=== PATIENT | female | born 1985 | race Two or more races ===

== ENCOUNTER 2017-11-17 08:11 | Outpatient (CLI) | payer BC, OTHER ==
[2017-11-17 09:10] LABS: HGB - HEMOGLOBIN 13.3 g/dL (12.0-16.0); MEAN CORPUSCULAR HEMOGLOBIN 29.6 pg (27.0-31.0); MEAN CORPUSCULAR HGB CONC 33.1 g/dL (32.0-36.0); MEAN CORPUSCULAR VOLUME 89.5 fL (81.0-99.0); MEAN PLATELET VOLUME 8.6 fL (7.9-10.8); RED BLOOD COUNT 4.5 10^6/uL (4.20-5.40); RED CELL DISTRIBUTION WIDTH 13.4 % (12.0-15.0); WHITE BLOOD COUNT 6.4 x10^3/uL (4.8-10.8)
[2017-11-17 09:24] LABS: CHOL/HDL RATIO 3.4 (<4.4); CHOLESTEROL 206 mg/dL; GLUCOSE,FASTING 91 mg/dL (70-100); HDL CHOLESTEROL 60 mg/dL; LDL CHOLESTEROL,CALCULATED 133 mg/dL; LDL/HDL RATIO 2.2 (<4.4); VLDL CHOLESTEROL 13 mg/dL
[2017-11-17 09:32] LABS: HB2 TOTAL 14.7 g/dL; HEMOGLOBIN A1C 0.48 g/dL; HEMOGLOBIN A1C % 5.1 % (4.6-6.2)
[2017-11-17 09:53] LABS: THYROID STIMULATING HORMONE 1.27 uIU/mL (0.34-5.60)
[2017-11-17 10:20] LABS: FOLLICLE STIMULATING HORMONE 6.7 mIU/mL
[2017-11-17 10:21] LABS: LUTEINIZING HORMONE 8.44 mIU/mL
[2017-11-18 11:57] LABS: ESTRADIOL 259 pg/mL
[2017-11-19 20:46] LABS: DHEA SULFATE 112 mcg/dL (18-391)
== END 2017-11-17 08:12 | disposition home or self-care (01) ==
LOC: LAB 08:11
PROVIDERS: ATTEND Registered Nurse
DX: Z01.419 Encounter for gynecological examination (general) (routine) without abnormal findings (principal); L70.0 Acne vulgaris
CPT/HCPCS: 36415; 80061; 81599; 82627; 82670; 82947; 83001; 83002; 83036; 83721; 84402; 84403; 84443; 85027

== ENCOUNTER 2017-12-01 15:09 | Outpatient (CLI) | payer BC, OTHER | END 2017-12-01 15:10 | disposition home or self-care (01) | LOC: LAB 15:09 | PROVIDERS: ATTEND Registered Nurse | DX: E28.2 Polycystic ovarian syndrome (principal) | CPT/HCPCS: 36415; 84144 ==

== ENCOUNTER 2017-12-29 17:17 | Outpatient (CLI) | payer BC, OTHER ==
--- NOTE | 2017-12-30 09:00 | Ultrasound Report ---
Procedure Date: 12/29/2017 Accession Number: [id number] / [id number] Procedure: US - OB First Trimester CPT Code: FULL RESULT: EXAM: FIRST TRIMESTER OBSTETRIC ULTRASOUND (Less than 11 weeks) EXAM DATE: 12/29/2017 06:36 PM. CLINICAL HISTORY: Positive test. Dating. LMP: 11/08/2017. COMPARISONS: None. TECHNIQUE: Transabdominal and transvaginal ultrasound examination with static image documentation. CLINICAL DATES: EGA 7 weeks, 2 days with DAVIN 08/15/2018 based on LMP. ASSESSMENT: Gestational Sac: Single intrauterine. Mean gestational sac diameter: 19.1 mm = 6 weeks, 2 days. Embryo: CRL (crown-rump length) 13.1 mm = 7 weeks, 4 days. Cardiac activity: 166 beats per minute. Yolk sac: 2.3 mm. Amniotic fluid: Not accurately assessed at this gestational age. Early placenta: Not visible at this gestational age. Other: No perigestational fluid collection demonstrated. MATERNAL STRUCTURES: Uterus: Anteverted. Unremarkable. Cervix: Closed. Right Ovary/Adnexa: Thick-walled cystic lesion is present within the right ovary measuring up proximally 1.8 x 2.1 x 2.2 cm with peripheral vascularity typically seen with a corpus luteal cyst. The ovary measures 3.7 x 2.0 x 2.2 cm, volume 8.5 cc. Left Ovary/Adnexa: Within the left ovary is a unilocular cyst measuring 2.1 x 1.8 x 1.5 cm. The ovary measures 3.4 x 2.1 x 3.0 cm, volume 11.2 cc. Free Fluid: Small volume of right adnexal pelvic free fluid.. Other: None. IMPRESSION: 1. Single viable intrauterine at EGA 7 weeks, 4 days with DAVIN 08/13/2018 based on crown-rump length, which is concordant with estimated gestational age of 7 weeks, 2 days based on stated dating. 2. Assigned dating is DAVIN 08/15/2018 based on LMP. HARPREET
== END 2017-12-29 17:18 | disposition home or self-care (01) ==
LOC: DI 17:17
PROVIDERS: ATTEND Registered Nurse
DX: Z32.01 Encounter for pregnancy test, result positive (principal)
CPT/HCPCS: 76801; 76817

== ENCOUNTER 2018-01-05 15:21 | Outpatient (CLI) | payer BC, OTHER ==
[2018-01-05 18:43] LABS: MUDS CUTOFF CONCENTRATIONS CUTOFF CONC BELOW:
[2018-01-05 19:02] LABS: AMPHETAMINE SCREEN,URINE NEGATIVE (NEGATIVE); BENZODIAZEPINES SCREEN, URINE NEGATIVE (NEGATIVE); COCAINE SCREEN URINE NEGATIVE (NEGATIVE); METHADONE SCREEN, URINE NEGATIVE (NEGATIVE); METHAMPHETAMINES SCREEN, URINE NEGATIVE (NEGATIVE); OPIATE SCREEN, URINE NEGATIVE (NEGATIVE); OXYCODONE SCREEN, URINE NEGATIVE (NEGATIVE); PROPOXYPHENE SCREEN, URINE NEGATIVE (NEGATIVE); TRICYCLIC ANTIDEPRESSANT,URINE NEGATIVE (NEGATIVE)
== END 2018-01-05 15:22 | disposition home or self-care (01) ==
LOC: LAB.R 15:21
PROVIDERS: ATTEND Registered Nurse
DX: Z36.9 Encounter for antenatal screening, unspecified (principal)
CPT/HCPCS: 80306; 87491; 87591

== ENCOUNTER 2018-01-05 16:29 | Outpatient (CLI) | payer BC, OTHER ==
[2018-01-05 17:01] LABS: BASOPHILS # (AUTO) 0.1 10^3/uL (0.0-0.1); BASOPHILS % (AUTO) 1.1 %; EOSINOPHILS # (AUTO) 0.3 10^3/uL (0.0-0.7); EOSINOPHILS % (AUTO) 2.7 %; HGB - HEMOGLOBIN 12.3 g/dL (12.0-16.0); LYMPHOCYTES # (AUTO) 3.1 10^3/uL (1.5-3.5); MEAN CORPUSCULAR HEMOGLOBIN 29.8 pg (27.0-31.0); MEAN CORPUSCULAR VOLUME 87.6 fL (81.0-99.0); MEAN PLATELET VOLUME 8.5 fL (7.9-10.8); MONOCYTES # (AUTO) 0.6 10^3/uL (0.0-1.0); MONOCYTES % (AUTO) 6.5 %; NEUTROPHILS # (AUTO) 5.6 10^3/uL (1.5-6.6); NEUTROPHILS % (AUTO) 57.7 %; PLT - PLATELET COUNT 197 10^3/uL (130-450); RED BLOOD COUNT 4.13 10^6/uL (4.20-5.40); RED CELL DISTRIBUTION WIDTH 13.5 % (12.0-15.0); WHITE BLOOD COUNT 9.7 x10^3/uL (4.8-10.8)
[2018-01-05 19:21] LABS: BILIRUBIN,URINE NEGATIVE (NEGATIVE); GLUCOSE, URINE (UA) NEGATIVE (NEGATIVE); KETONES,URINE (UA) NEGATIVE (NEGATIVE); LEUKOCYTE ESTERASE, URINE NEGATIVE (NEGATIVE); NITRITE,URINE NEGATIVE (NEGATIVE); OCCULT BLOOD,URINE NEGATIVE (NEGATIVE); PROTEIN,URINE NEGATIVE (NEGATIVE); UROBILINOGEN,URINE 0.2 (NORMAL) E.U./dL (NORMAL)
[2018-01-05 19:23] LABS: CLARITY,URINE CLEAR (CLEAR)
[2018-01-05 19:36] LABS: BACTERIA,URINE None Seen /HPF (None Seen); RBC,URINE None Seen /HPF (0-5); SQUAMOUS EPITHELIAL CELL,UR RARE Squamous (<= Few)
[2018-01-06 11:56] LABS: HEPATITIS B SURFACE ANTIGEN NON-REACTIVE (NON-REACTIVE)
[2018-01-06 11:58] LABS: HEPATITIS C ANTIBODY NON-REACTIVE (NON-REACTIVE)
[2018-01-06 13:51] LABS: HIV AG/AB 4TH GEN NON-REACTIVE (NON-REACTIVE)
== END 2018-01-05 16:30 | disposition home or self-care (01) ==
LOC: LAB 16:29
PROVIDERS: ATTEND Registered Nurse
DX: Z36.9 Encounter for antenatal screening, unspecified (principal)
CPT/HCPCS: 36415; 80306; 81001; 81599; 85025; 86762; 86803; 86850; 86900; 86901; 87340; 87389; 87491; 87591

== ENCOUNTER 2018-01-19 06:36 | Emergency (ER) | payer BC, OTHER ==
--- NOTE | 2018-01-19 07:13 | ED Physician Documentation ---
PD HPI NECK PAIN - Stated complaint Stated Complaint: NECK PX/10WKS PREG - Chief complaint Chief Complaint: Back Pain - History obtained from History obtained from: Patient - History of Present Illness Timing - onset: Today Timing - details: Abrupt onset (when turned head to roll and get out of bed. Right lateral posterior neck pain.) Location: Mid, Lower (along trapezius muscle line right neck toward suprascapular area.), Right Quality: Pain, Spasm, Aching Associated symptoms: No: Fever, Weakness, Numbness, Incontinent of urine Worsened by: Movement, Twisting, Palpation. No: Lifting Contributing factors: No: Lifting, Twisting, Trauma Similar symptoms before: Has not had sx before Recently seen: Clinic Review of Systems Constitutional: denies: Fever, Chills, Myalgias Nose: denies: Rhinorrhea / runny nose, Congestion Throat: denies: Sore throat Respiratory: denies: Cough GI: denies: Abdominal Pain : reports: Now EGA. denies: Dysuria, Frequency, Discharge, Vaginal bleeding Skin: denies: Rash, Lesions Musculoskeletal: reports: Neck pain. denies: Back pain, Extremity pain Neurologic: denies: Focal weakness, Numbness, Near syncope, Altered mental status, Headache, Head injury PD PAST MEDICAL HISTORY - Past Surgical History Past Surgical History: Yes - Present Medications Home Medications: Ambulatory Orders Medication Instructions Recorded Confirmed HYDROcod/ACETAM 5/325 [[place] 5/325] 1 tab PO Q6H PRN #10 tablet 01/19/18 Methocarbamol [Robaxin] 500 mg PO Q6H PRN #15 tablet 01/19/18 Naproxen 375 mg PO BID #20 tablet 01/19/18 Pnv No.122/Iron/Folic Acid 1 tab PO DAILY 01/19/18 [ Multi Tablet] - Allergies Allergies/Adverse Reactions: Allergies Allergy/AdvReac Type Severity Reaction Status Date / Time No Known Drug Allergies Allergy Verified 01/19/18 06:50 - Social History Does the pt smoke?: No Smoking Status: Never smoker - Family History Family history: reports: Non contributory PD ED PE NORMAL - Vitals Vital signs reviewed: Yes - General General: Alert and oriented X 3, Well developed/nourished, Other (seems uncomfortable considerably, holding her neck very still. Tenderness right trapezius and suprascapular) - HEENT HEENT: PERRL, EOMI, Ears normal, Pharynx benign - Neck Neck: No bony TTP, No adenopathy, Other (right trapezius muscle tender laterally at neck and to the suprascapular area on right. No rash nor sores. Did injection at lower neck muscle laterally with Marcaine. No problems from the patient) - Cardiac Cardiac: RRR, No murmur - Respiratory Respiratory: Clear bilaterally - Abdomen Abdomen: Soft, Non tender - Back Back: No CVA TTP, No spinal TTP - Derm Derm: Normal color, Warm and dry, No rash - Neuro Neuro: Alert and oriented X 3, athletic monitor 2-12 intact, No motor deficit, No sensory deficit, Normal speech Results - Vitals Vitals: Oxygen O2 Source Room air PD MEDICAL DECISION MAKING - ED course Complexity details: considered differential (neck pain seems c/w trapezius strain and spasm. No red flags there. Bedside US of uterus shows IUP with good movement and FHB. No pelvic free fluid. ), d/w patient - Sepsis Event Vital Signs: Oxygen O2 Source Room air Departure - Departure Disposition: 01 Home, Self Care Clinical Impression: Neck muscle strain Qualifiers: Encounter type: initial encounter Qualified Code(s): S16.1XXA - Strain of muscle, fascia and tendon at neck level, initial encounter Qualifiers: Weeks of gestation: 10 weeks Qualified Code(s): Z3A.10 - 10 weeks gestation of Condition: Stable Record reviewed to determine appropriate education?: Yes Instructions: ED Neck Pain No Trauma Follow-Up: [facility] [Provider Group] Lindsay Gong PA-C [Primary Care Provider] - Prescriptions: HYDROcod/ACETAM 5/325 [[place] 5/325] 1 tab PO Q6H PRN #10 tablet PRN Reason: Pain Methocarbamol [Robaxin] 500 mg PO Q6H PRN #15 tablet PRN Reason: Spasms Naproxen 375 mg PO BID #20 tablet Comments: Your looks good on bedside ultrasound. The neck pain sounds muscular and we will treated with anti-inflammatories muscle relaxants and then add Tylenol or hydrocodone if needed for pain. These would be short-term medications. These are all okay in your stage of . You can add heat, gentle stretching, and any physical treatment such as massage or chiropractic. Recheck if not better over the next couple of days. Discharge Date/Time: 01/19/18 08:54
[2018-01-19] MEDS ORDERED: IBUPROFEN 600 MG TABLET PO STA (07:35)
[2018-01-19] MEDS ORDERED: METHOCARBAMOL 500 MG TABLET PO STA (07:36)
[2018-01-19] MEDS ORDERED: HYDROcod/ACETAM 5/325 MG TABLET PO STA (07:36)
[2018-01-19 08:54] VITALS: BP 113/69
== END 2018-01-19 08:54 | disposition home or self-care (01) ==
LOC: ED 06:36
DX: O99.89 Other specified diseases and conditions complicating pregnancy, childbirth and the puerperium (principal); S16.1XXA Strain of muscle, fascia and tendon at neck level, initial encounter; Z3A.10 10 weeks gestation of pregnancy
CPT/HCPCS: 99283; A9270

== ENCOUNTER 2018-01-22 07:45 | Outpatient (CLI) | payer BC, OTHER | END 2018-01-22 07:46 | disposition home or self-care (01) | LOC: LAB 07:45 | PROVIDERS: ATTEND Nurse Practitioner Obstetrics & Gynecology | DX: Z13.79 Encounter for other screening for genetic and chromosomal anomalies (principal) | CPT/HCPCS: 36415 ==

== ENCOUNTER 2018-04-13 07:16 | Outpatient (CLI) | payer BC, OTHER ==
--- NOTE | 2018-04-13 10:39 | Ultrasound Report ---
Reason: ENCTR FOR SCREENING, UNSPECIFIED Procedure Date: 04/13/2018 Accession Number: [id number] / [id number] Procedure: US - OB Detailed Eval CPT Code: FULL RESULT: EXAM: COMPLETE OBSTETRICAL ULTRASOUND EXAM DATE: 04/13/2018 09:31 AM. CLINICAL HISTORY: anatomic survey. COMPARISON: First trimester ultrasound 12/29/2017. TECHNIQUE: Real-time sonographic evaluation of the fetus performed by the shading painter. Multiple business process representative static images were saved for review. DATING: Established EGA 22 weeks 2 days with DAVIN 08/15/2018 based on last menstrual period. EGA 22 weeks 2 days with DAVIN 08/15/2018 based on the current ultrasound. GENERAL EVALUATION Valerio . Cardiac activity: 148 bpm. movement: Visualized. Presentation: Cephalic. Placenta: Posterior position. No evidence for previa. Umbilical cord: 3 vessel cord. Central placental cord origin. Amniotic fluid: Subjectively normal, ROSITA 16.4. MVP 4.7 cm. BIOMETRY Bi-Parietal Diameter (BPD): 5.2 cm, 21 weeks 4 days Head Circumference (HC): 19.5 cm, 21 weeks 5 days Abdominal Circumference (AC): 17.8 cm, 22 weeks 5 days Femur Length (FL): 4.0 cm, 23 weeks 0 days Estimated Weight: 523 g, 62nd percentile for 22 weeks 2 days. ANATOMY The intracranial structures, profile, face/nose/lips, spine, 4 chamber heart and outflow tracts, stomach, abdominal wall and cord insertion, diaphragm, kidneys, bladder, and extremities were visualized and demonstrate no abnormality. MATERNAL STRUCTURES Uterus: Unremarkable. Cervix: Long and closed. Transabdominal length 5.0 cm. Right ovary/adnexa: Unremarkable. Left ovary/adnexa: Unremarkable. Free fluid: None. IMPRESSION: 1. Valerio live intrauterine with gestational age 22 weeks 2 days based on the established due date. 2. Estimated weight is within expected limits for assigned dating. 3. Normal anatomic survey. No anatomic abnormalities are detected at this time. RADIA
== END 2018-04-13 07:17 | disposition home or self-care (01) ==
LOC: DI 07:16
PROVIDERS: ATTEND Nurse Practitioner Obstetrics & Gynecology
DX: Z36.9 Encounter for antenatal screening, unspecified (principal)
CPT/HCPCS: 76811

== ENCOUNTER 2018-05-07 11:51 | Outpatient (CLI) | payer BC, OTHER ==
[2018-05-07 13:16] LABS: BASOPHILS % (AUTO) 0.3 %; EOSINOPHILS # (AUTO) 0.2 10^3/uL (0.0-0.7); EOSINOPHILS % (AUTO) 1.4 %; HGB - HEMOGLOBIN 11.9 g/dL (12.0-16.0); LYMPHOCYTES # (AUTO) 2.3 10^3/uL (1.5-3.5); LYMPHOCYTES % (AUTO) 16.4 %; MEAN CORPUSCULAR HEMOGLOBIN 30.1 pg (27.0-31.0); MEAN CORPUSCULAR HGB CONC 34.2 g/dL (32.0-36.0); MEAN CORPUSCULAR VOLUME 87.8 fL (81.0-99.0); MEAN PLATELET VOLUME 8.3 fL (7.9-10.8); MONOCYTES # (AUTO) 0.8 10^3/uL (0.0-1.0); MONOCYTES % (AUTO) 6.1 %; NEUTROPHILS # (AUTO) 10.5 10^3/uL (1.5-6.6); NEUTROPHILS % (AUTO) 75.8 %; PLT - PLATELET COUNT 198 10^3/uL (130-450); RED BLOOD COUNT 3.95 10^6/uL (4.20-5.40); RED CELL DISTRIBUTION WIDTH 13.6 % (12.0-15.0); WHITE BLOOD COUNT 13.8 x10^3/uL (4.8-10.8)
== END 2018-05-07 11:52 | disposition home or self-care (01) ==
LOC: LAB 11:51
PROVIDERS: ATTEND Registered Nurse
DX: Z34.90 Encounter for supervision of normal pregnancy, unspecified, unspecified trimester (principal)
CPT/HCPCS: 36415; 82950; 85025; 86850

== ENCOUNTER 2018-05-07 13:12 | Outpatient (CLI) | payer BC, OTHER | END 2018-05-07 13:13 | disposition home or self-care (01) | LOC: RT 13:12 | PROVIDERS: ATTEND Registered Nurse | DX: R06.00 Dyspnea, unspecified (principal); Z34.90 Encounter for supervision of normal pregnancy, unspecified, unspecified trimester | CPT/HCPCS: 36415; 82950; 85025; 86850; 94010 ==

== ENCOUNTER 2018-12-21 08:00 | Outpatient (CLI) | payer BC, OTHER ==
[2018-12-21 12:14] LABS: BASOPHILS # (AUTO) 0.1 10^3/uL (0.0-0.1); BASOPHILS % (AUTO) 0.5 %; EOSINOPHILS # (AUTO) 0.4 10^3/uL (0.0-0.7); HGB - HEMOGLOBIN 13.5 g/dL (12.0-16.0); LYMPHOCYTES # (AUTO) 2.8 10^3/uL (1.5-3.5); LYMPHOCYTES % (AUTO) 29.8 %; MEAN CORPUSCULAR HEMOGLOBIN 27.9 pg (27.0-31.0); MEAN CORPUSCULAR HGB CONC 32.1 g/dL (32.0-36.0); MEAN PLATELET VOLUME 11.3 fL (7.9-10.8); MONOCYTES # (AUTO) 0.8 10^3/uL (0.0-1.0); MONOCYTES % (AUTO) 8.8 %; NEUTROPHILS # (AUTO) 5.2 10^3/uL (1.5-6.6); NEUTROPHILS % (AUTO) 55.9 %; PLT - PLATELET COUNT 241 10^3/uL (130-450); RED BLOOD COUNT 4.84 10^6/uL (4.20-5.40); RED CELL DISTRIBUTION WIDTH 14.3 % (12.0-15.0); WHITE BLOOD COUNT 9.4 x10^3/uL (4.8-10.8)
[2018-12-21 12:23] LABS: ALBUMIN 4.2 g/dL (3.2-5.5); ALBUMIN/GLOBULIN RATIO 1.2 (1.0-2.2); ALKALINE PHOSPHATASE 87 IU/L (42-121); ALT ALANINE AMINOTRANSFERASE 19 IU/L (10-60); AST ASPARTATE AMINOTRANSFERASE 20 IU/L (10-42); BILIRUBIN,TOTAL 1.1 mg/dL (0.2-1.0); BUN - BLOOD UREA NITROGEN 15 mg/dL (6-20); CALCIUM 9.7 mg/dL (8.5-10.3); CARBON DIOXIDE - CO2 23 mmol/L (21-32); CHLORIDE 102 mmol/L (101-111); CREATININE 0.6 mg/dL (0.4-1.0); GFR - MDRD 117 (>89); GLUCOSE 98 mg/dL (70-100); SODIUM 136 mmol/L (135-145); TOTAL PROTEIN 7.8 g/dL (6.7-8.2)
[2018-12-21 12:51] LABS: CRP - C-REACTIVE PROTEIN < 1.0 mg/dL (0-1.0)
[2018-12-21 12:58] LABS: RHEUMATOID FACTOR NEGATIVE (Negative)
[2018-12-23 19:27] LABS: ANA SCREEN POSITIVE (NEGATIVE)
== END 2018-12-21 08:01 | disposition home or self-care (01) ==
LOC: LAB.N 08:00
PROVIDERS: ATTEND Nurse Practitioner Gerontology
DX: L30.9 Dermatitis, unspecified (principal); M25.50 Pain in unspecified joint; Z13.9 Encounter for screening, unspecified
CPT/HCPCS: 36415; 80053; 85025; 85651; 86038; 86140; 86430

== ENCOUNTER 2019-04-28 08:00 | Outpatient (CLI) | payer BC, OTHER ==
[2019-04-29 15:01] LABS: MUDS CUTOFF CONCENTRATIONS CUTOFF CONC BELOW:
[2019-04-29 15:08] LABS: AMPHETAMINE SCREEN,URINE NEGATIVE (NEGATIVE); BENZODIAZEPINES SCREEN, URINE NEGATIVE (NEGATIVE); COCAINE SCREEN URINE NEGATIVE (NEGATIVE); METHADONE SCREEN, URINE NEGATIVE (NEGATIVE); METHAMPHETAMINES SCREEN, URINE NEGATIVE (NEGATIVE); OPIATE SCREEN, URINE NEGATIVE (NEGATIVE); OXYCODONE SCREEN, URINE NEGATIVE (NEGATIVE); PROPOXYPHENE SCREEN, URINE NEGATIVE (NEGATIVE); TRICYCLIC ANTIDEPRESSANT,URINE NEGATIVE (NEGATIVE)
== END 2019-04-28 23:59 | disposition home or self-care (01) ==
LOC: LAB.R 08:00
PROVIDERS: ATTEND Nurse Practitioner Obstetrics & Gynecology
DX: Z36.89 Encounter for other specified antenatal screening (principal)
CPT/HCPCS: 80306

== ENCOUNTER 2019-04-28 15:37 | Emergency (ER) | payer BC, OTHER ==
--- NOTE | 2019-04-28 16:18 | ED Physician Documentation ---
History of Present Illness - Stated complaint Stated Complaint: ABD PX, RECTAL BLEEDING - Chief complaint Chief Complaint: Abd Pain - History obtained from History obtained from: Patient, Family - History of Present Illness Timing: Last night Pain level max: 6 Pain level now: 3 - Additonal information Additional information: 33-year-old female, 2 para 1 approximately 17 weeks . She had diarrhea and rectal bleeding last night. Has had diarrhea and scant amount of bright red blood with the diarrhea today. No fevers. Does have abdominal cramping, mainly in the lower abdomen. No recent travel or antibiotics. She was seen at [facility] last night with no significant laboratory abnor malities and told to follow-up with OB. She saw OB today who sent her here for evaluation. Nothing makes it better or worse. Review of Systems Ten Systems: 10 systems reviewed and negative Constitutional: denies: Fever, Chills Ears: denies: Ear pain Nose: denies: Rhinorrhea / runny nose, Congestion Throat: denies: Sore throat Cardiac: denies: Chest pain / pressure Respiratory: denies: Dyspnea, Cough, Wheezing GI: reports: Diarrhea, Bloody / black stool (bright red, small amounts) Skin: denies: Rash Musculoskeletal: denies: Neck pain, Back pain Neurologic: denies: Headache PD PAST MEDICAL HISTORY - Past Medical History Past Medical History: Yes Psych: Post traumatic stress disorder - Past Surgical History Past Surgical History: Yes General: Other HEENT: Tonsil/Adenoidectomy - Present Medications Home Medications: Ambulatory Orders Medication Instructions Recorded Confirmed HYDROcod/ACETAM 5/325 [[place] 5/325] 1 tab PO Q6H PRN #10 tablet 01/19/18 Methocarbamol [Robaxin] 500 mg PO Q6H PRN #15 tablet 01/19/18 Naproxen 375 mg PO BID #20 tablet 01/19/18 No122/Iron/Folic Acid 1 tab PO DAILY 01/19/18 [ Multi Tablet] Amox/Clav 875/125 [Augmentin] 1 tab PO Q12H #20 tablet 04/28/19 - Allergies Allergies/Adverse Reactions: Allergies Allergy/AdvReac Type Severity Reaction Status Date / Time No Known Drug Allergies Allergy Verified 04/28/19 15:40 - Living Situation Living Situation: reports: With family Living Arrangement: reports: At home - Social History Does the pt smoke?: No Smoking Status: Never smoker Does the pt drink ETOH?: No Does the pt have substance abuse?: No - Immunizations Immunizations are current?: Yes PD ED PE NORMAL - Vitals Vital signs reviewed: Yes - General General: Alert and oriented X 3, No acute distress, Well developed/nourished - HEENT HEENT: Moist mucous membranes, Pharynx benign - Neck Neck: Supple, no meningeal sign - Cardiac Cardiac: RRR, Strong equal pulses - Respiratory Respiratory: No respiratory distress, Clear bilaterally - Abdomen Abdomen: Soft, Non distended, Other (Mild diffuse tenderness across the lower abdomen, worse in the left lower quadrant.) - Rectal Rectal: Other (Milli, java tech lead chaperoned. No blood on the glove. Mild diffuse tenderness.) - Derm Derm: Warm and dry - Extremities Extremities: No edema, No calf tenderness / cord - Neuro Neuro: Alert and oriented X 3 - Psych Psych: Normal mood, Normal affect Results - Vitals Vitals: Vital Signs - 24 hr 04/28/19 04/28/19 04/28/19 15:40 16:50 17:51 Temperature 36.7 C Heart Rate 78 88 81 Respiratory 16 22 14 Rate Blood Pressure 111/61 114/65 130/80 O2 Saturation 100 95 99 Oxygen O2 Source Room air - Labs Labs: Laboratory Tests 04/28/19 04/28/19 04/28/19 16:00 16:15 16:15 WBC 12.7 H RBC 4.17 L Hgb 11.7 L Hct 35.9 L MCV 86.1 MCH 28.1 MCHC 32.6 RDW 13.9 Plt Count 204 MPV 10.4 Neut # (Auto) 9.0 H Lymph # (Auto) 2.5 [place] # (Auto) 0.9 Eos # (Auto) 0.2 Baso # (Auto) 0.0 Absolute Nucleated RBC 0.00 Nucleated RBC % 0.0 PT 12.0 INR 1.1 APTT 24.4 L Sodium Potassium Chloride Carbon Dioxide Anion Gap BUN Creatinine Estimated GFR (MDRD) Glucose Calcium Total Bilirubin AST ALT Alkaline Phosphatase Total Protein Albumin Globulin Albumin/Globulin Ratio Lipase Urine Color YELLOW Urine Clarity CLEAR Urine pH 7.0 Ur Specific [place] 1.010 Urine Protein NEGATIVE Urine Glucose (UA) NEGATIVE Urine Ketones NEGATIVE Urine Occult Blood NEGATIVE Urine Nitrite NEGATIVE Urine Bilirubin NEGATIVE Urine Urobilinogen 0.2 (NORMAL) Ur Leukocyte Esterase NEGATIVE Ur Microscopic Review NOT INDICATED Urine Culture Comments NOT INDICATED 04/28/19 16:15 WBC RBC Hgb Hct MCV MCH MCHC RDW Plt Count MPV Neut # (Auto) Lymph # (Auto) [place] # (Auto) Eos # (Auto) Baso # (Auto) Absolute Nucleated RBC Nucleated RBC % PT INR APTT Sodium 135 Potassium 3.4 L Chloride 105 Carbon Dioxide 23 Anion Gap 7.0 BUN 5 L Creatinine 0.5 Estimated GFR (MDRD) 144 Glucose 90 Calcium 8.9 Total Bilirubin 0.8 AST 16 ALT 18 Alkaline Phosphatase 67 Total Protein 7.3 Albumin 3.6 Globulin 3.7 Albumin/Globulin Ratio 1.0 Lipase 28 Urine Color Urine Clarity Urine pH Ur Specific [place] Urine Protein Urine Glucose (UA) Urine Ketones Urine Occult Blood Urine Nitrite Urine Bilirubin Urine Urobilinogen Ur Leukocyte Esterase Ur Microscopic Review Urine Culture Comments PD MEDICAL DECISION MAKING - ED course Complexity details: reviewed results, re-evaluated patient, considered differential, d/w patient, d/w healthcare economics consultant (Dr. Alfaro) ED course: heart rate in the 160s heart rate monitoring. Patient is well-appearing, nontoxic. Afebrile. Appears to have symptoms consistent with a colitis. Diarrhea at home with a small amount of bright red blood per rectum. Will place on Augmentin and have her follow-up with OB. Discussed the case with Dr. Alfaro, OB on-call. No evidence of perforation or abscess. No peritoneal signs. Patient counseled regarding signs and symptoms for which I believe and urgent re-evaluation would be necessary. Patient with good understanding of and agreement to plan and is comfortable going home at this time This document was made in part using voice recognition software. While efforts are made to proofread this document, sound alike and grammatical errors may occur. Departure - Departure Disposition: 01 Home, Self Care Clinical Impression: Colitis, Rectal bleeding Condition: Good Instructions: ED Diverticulitis Follow-Up: Tigist Carrillo ARNP [Primary Care Provider] - Within 1 week Prescriptions: Amox/Clav 875/125 [Augmentin] 1 tab PO Q12H #20 tablet Comments: Take all antibiotics until gone. This is likely an infectious colitis. You should start to notice some improvement within the next 48 hours. Return for worsening pain, fevers or vomiting. Drink plenty of fluids. Discharge Date/Time: 04/28/19 17:53
[2019-04-28 16:21] LABS: BILIRUBIN,URINE NEGATIVE (NEGATIVE); GLUCOSE, URINE (UA) NEGATIVE (NEGATIVE); KETONES,URINE (UA) NEGATIVE (NEGATIVE); LEUKOCYTE ESTERASE, URINE NEGATIVE (NEGATIVE); NITRITE,URINE NEGATIVE (NEGATIVE); OCCULT BLOOD,URINE NEGATIVE (NEGATIVE); PROTEIN,URINE NEGATIVE (NEGATIVE); UROBILINOGEN,URINE 0.2 (NORMAL) E.U./dL (NORMAL)
[2019-04-28 16:26] LABS: CLARITY,URINE CLEAR (CLEAR)
[2019-04-28 16:29] LABS: BASOPHILS % (AUTO) 0.2 %; EOSINOPHILS # (AUTO) 0.2 10^3/uL (0.0-0.7); EOSINOPHILS % (AUTO) 1.2 %; HGB - HEMOGLOBIN 11.7 g/dL (12.0-16.0); LYMPHOCYTES # (AUTO) 2.5 10^3/uL (1.5-3.5); LYMPHOCYTES % (AUTO) 19.9 %; MEAN CORPUSCULAR HEMOGLOBIN 28.1 pg (27.0-31.0); MEAN CORPUSCULAR HGB CONC 32.6 g/dL (32.0-36.0); MEAN CORPUSCULAR VOLUME 86.1 fL (81.0-99.0); MEAN PLATELET VOLUME 10.4 fL (7.9-10.8); MONOCYTES # (AUTO) 0.9 10^3/uL (0.0-1.0); MONOCYTES % (AUTO) 6.8 %; NEUTROPHILS % (AUTO) 70.9 %; PLT - PLATELET COUNT 204 10^3/uL (130-450); RED BLOOD COUNT 4.17 10^6/uL (4.20-5.40); RED CELL DISTRIBUTION WIDTH 13.9 % (12.0-15.0); WHITE BLOOD COUNT 12.7 x10^3/uL (4.8-10.8)
[2019-04-28 16:34] LABS: INR 1.1 (0.8-1.2)
[2019-04-28 16:41] LABS: ALBUMIN 3.6 g/dL (3.2-5.5); BILIRUBIN,TOTAL 0.8 mg/dL (0.2-1.0); CALCIUM 8.9 mg/dL (8.5-10.3); CREATININE 0.5 mg/dL (0.4-1.0); PARTIAL THROMBOPLASTIN TIME 24.4 secs (24.9-33.3); TOTAL PROTEIN 7.3 g/dL (6.7-8.2)
[2019-04-28] MEDS ORDERED: AMOX/CLAV 875 MG/125 MG TABLET PO STA (16:42)
[2019-04-28] MEDS ORDERED: ACETAMINOPHEN 325 MG TABLET PO STA (16:42)
[2019-04-28 17:53] VITALS: BP 130/80
== END 2019-04-28 17:53 | disposition home or self-care (01) ==
LOC: ED 15:37
DX: O99.612 Diseases of the digestive system complicating pregnancy, second trimester (principal); K52.9 Noninfective gastroenteritis and colitis, unspecified; K62.5 Hemorrhage of anus and rectum; Z3A.17 17 weeks gestation of pregnancy
CPT/HCPCS: 36415; 80053; 81003; 83690; 85025; 85610; 85730; 99283; A9270; 81001; 87086

== ENCOUNTER 2019-05-05 13:31 | Outpatient (CLI) | payer BC, OTHER ==
[2019-05-05 13:38] LABS: BASOPHILS % (AUTO) 0.3 %; EOSINOPHILS # (AUTO) 0.2 10^3/uL (0.0-0.7); EOSINOPHILS % (AUTO) 1.6 %; HGB - HEMOGLOBIN 11.5 g/dL (12.0-16.0); LYMPHOCYTES # (AUTO) 2.3 10^3/uL (1.5-3.5); LYMPHOCYTES % (AUTO) 24.6 %; MEAN CORPUSCULAR HEMOGLOBIN 28.5 pg (27.0-31.0); MEAN CORPUSCULAR HGB CONC 32.8 g/dL (32.0-36.0); MEAN CORPUSCULAR VOLUME 87.1 fL (81.0-99.0); MEAN PLATELET VOLUME 10.5 fL (7.9-10.8); MONOCYTES # (AUTO) 0.5 10^3/uL (0.0-1.0); MONOCYTES % (AUTO) 5.7 %; MUDS CUTOFF CONCENTRATIONS CUTOFF CONC BELOW:; NEUTROPHILS # (AUTO) 6.2 10^3/uL (1.5-6.6); NEUTROPHILS % (AUTO) 66.5 %; PLT - PLATELET COUNT 214 10^3/uL (130-450); RED BLOOD COUNT 4.03 10^6/uL (4.20-5.40); RED CELL DISTRIBUTION WIDTH 14.1 % (12.0-15.0); WHITE BLOOD COUNT 9.3 x10^3/uL (4.8-10.8)
[2019-05-05 13:48] LABS: AMPHETAMINE SCREEN,URINE NEGATIVE (NEGATIVE); BENZODIAZEPINES SCREEN, URINE NEGATIVE (NEGATIVE); COCAINE SCREEN URINE NEGATIVE (NEGATIVE); METHADONE SCREEN, URINE NEGATIVE (NEGATIVE); METHAMPHETAMINES SCREEN, URINE NEGATIVE (NEGATIVE); OPIATE SCREEN, URINE NEGATIVE (NEGATIVE); OXYCODONE SCREEN, URINE NEGATIVE (NEGATIVE); PROPOXYPHENE SCREEN, URINE NEGATIVE (NEGATIVE); TRICYCLIC ANTIDEPRESSANT,URINE NEGATIVE (NEGATIVE)
[2019-05-05 13:53] LABS: ALBUMIN 3.6 g/dL (3.2-5.5); BILIRUBIN,TOTAL 0.6 mg/dL (0.2-1.0); CALCIUM 8.8 mg/dL (8.5-10.3); CREATININE 0.5 mg/dL (0.4-1.0); TOTAL PROTEIN 7.1 g/dL (6.7-8.2); URIC ACID 3.1 mg/dL (2.6-7.2)
[2019-05-05 14:15] LABS: HB2 TOTAL 11.8 g/dL; HEMOGLOBIN A1C 0.53 g/dL; HEMOGLOBIN A1C % 6.3 % (4.6-6.2)
--- NOTE | 2019-05-06 11:12 | Ultrasound Report ---
Reason: SUPERVISION FOR HIGH RISK , SCR Procedure Date: 05/05/2019 Accession Number: [id number] / [id number] Procedure: US - OB Detailed Eval CPT Code: Final Report FULL RESULT: EXAM: COMPLETE OBSTETRICAL ULTRASOUND EXAM DATE: 05/05/2019 02:37 PM. CLINICAL HISTORY: anatomic survey. COMPARISON: None. TECHNIQUE: Real-time sonographic evaluation of the fetus performed by the agency manager. Multiple novelties sales representative static images were saved for review. Additional transvaginal imaging to more accurately evaluate cervical length/placental position/etc. DATING: Established EGA 18 weeks 4 days with DAVIN 10/02/2019 based on working due date. EGA 18 weeks 1 day with DAVIN 10/05/2019 based on the current ultrasound. GENERAL EVALUATION Valerio . Cardiac activity: 153 bpm. movement: Visualized. Presentation: Variable. Placenta: Posterior position. No evidence for previa. Umbilical cord: 3 vessel cord. Central placental cord origin. Amniotic fluid: Subjectively normal. MVP 4 cm. BIOMETRY Bi-Parietal Diameter (BPD): 4.2 cm, 18 weeks 6 days Head Circumference (HC): 15.4 cm, 18 weeks 3 days Abdominal Circumference (AC): 12.2 cm, 17 weeks 6 days Femur Length (FL): 2.6 cm, 18 weeks 0 days Estimated Weight: 218 g, 16th percentile for 18 weeks 4 days. ANATOMY The anatomy survey is limited by hyperactive fetus and relatively early gestational age. The choroid plexus, CSP, cisterna magna, cerebellum, profile/nasal bone views as well as cardiac views including left and right ventricular outflow tracts, stomach and situs images, heart/stomach/bladder relationship, diaphragm, bladder and cord insertion are all normal. The lateral ventricles, midline falx, nuchal fold, coronal face, nose and lips, open hands in real time, kidneys, entire spine and extremities are not sufficiently visualized. MATERNAL STRUCTURES Uterus: Unremarkable. Cervix: Long and closed. Transvaginal length 5.9 cm. Right ovary/adnexa: 1.6 cm cyst, felt to be within physiologic limits. Left ovary/adnexa: 1 x 7 cm cyst, felt to be within physiologic limits. Free fluid: None. IMPRESSION: 1. Valerio live intrauterine with gestational age 18 weeks 4 days based on working due date. 2. Estimated weight is within expected limits for assigned dating. 3. Incomplete anatomy survey with no abnormality detected at this time. RADIA
[2019-05-06 13:42] LABS: HIV AG/AB 4TH GEN NON-REACTIVE (NON-REACTIVE)
[2019-05-06 13:55] LABS: HEPATITIS B SURFACE ANTIGEN NON-REACTIVE (NON-REACTIVE); HEPATITIS C ANTIBODY NON-REACTIVE (NON-REACTIVE)
== END 2019-05-05 13:32 | disposition home or self-care (01) ==
LOC: DI 13:31
PROVIDERS: ATTEND Nurse Practitioner Obstetrics & Gynecology
DX: O09.892 Supervision of other high risk pregnancies, second trimester (principal); Z36.89 Encounter for other specified antenatal screening; Z87.59 Personal history of other complications of pregnancy, childbirth and the puerperium; Z3A.18 18 weeks gestation of pregnancy
CPT/HCPCS: 36415; 76811; 76817; 80053; 80306; 81599; 83036; 84550; 85025; 86762; 86803; 86850; 86900; 86901; 87340; 87389

== ENCOUNTER 2019-05-07 07:49 | Outpatient (CLI) | payer BC, OTHER | END 2019-05-07 07:50 | disposition home or self-care (01) | LOC: LAB 07:49 | PROVIDERS: ATTEND Nurse Practitioner Obstetrics & Gynecology | DX: R73.09 Other abnormal glucose (principal) | CPT/HCPCS: 36415; 82951 ==

== ENCOUNTER 2019-05-21 07:08 | Outpatient (CLI) | payer BC, OTHER ==
--- NOTE | 2019-05-21 09:21 | Ultrasound Report ---
Reason: COMPLETION FAS, ENCOUNTER SCREENING Procedure Date: 05/21/2019 Accession Number: [id number] / [id number] Procedure: US - OB F/U or Repeat CPT Code: Final Report FULL RESULT: EXAM: FOLLOW-UP OBSTETRICAL ULTRASOUND EXAM DATE: 05/21/2019 08:37 AM. CLINICAL HISTORY: Completion anatomic survey, encounter screening. COMPARISON: OB DETAILED EVAL 05/05/2019 2:37 PM. TECHNIQUE: Real-time sonographic evaluation of the fetus performed by the nurse instructor. Multiple signs sales representative static images were saved for review. DATING: Established EGA 20 weeks 6 days with DAVIN 10/02/2019 based on reported working due date. EGA 20 weeks 3 days with DAVIN 10/05/2019 based on first ultrasound. GENERAL EVALUATION Valerio . Cardiac activity: 160 bpm. movement: Visualized. Presentation: Cephalic. Placenta: Posterior position. Amniotic fluid: Normal. ROSITA 14.7 cm. MVP 6.1 cm. ANATOMY Cerebral falx, cerebral lateral ventricles, nuchal fold, orbits, face, nose, lips, kidneys, upper and lower extremities as well as hands and the entire spine are adequately seen and appear normal. Cardiac situs was adequately established on the previous examination dated 05/05/2019, see image 63 series 1. MATERNAL STRUCTURES Cervical length is 4 cm transabdominally, long and closed. IMPRESSION: 1. Valerio live intrauterine with gestational age 20 weeks 6 days based on working due date. 2. Normal completion of the anatomy survey. RADIA The call report notification system was initiated by Dr. Eber Holliday at 09:07 AM on 05/21/2019. The above call report findings were discussed with the practice RN on behalf of Sherry Mock NP by Dr. Eber Holliday at 09:19 AM on 05/21/2019.
== END 2019-05-21 07:09 | disposition home or self-care (01) ==
LOC: DI 07:08
PROVIDERS: ATTEND Nurse Practitioner Obstetrics & Gynecology
DX: Z36.89 Encounter for other specified antenatal screening (principal)
CPT/HCPCS: 76816

== ENCOUNTER 2019-07-12 07:52 | Outpatient (CLI) | payer OTHER ==
[2019-07-12 09:15] LABS: HGB - HEMOGLOBIN 11.3 g/dL (12.0-16.0); MEAN CORPUSCULAR HGB CONC 32.4 g/dL (32.0-36.0); MEAN CORPUSCULAR VOLUME 89.7 fL (81.0-99.0); MEAN PLATELET VOLUME 10.3 fL (7.9-10.8); RED BLOOD COUNT 3.89 10^6/uL (4.20-5.40); RED CELL DISTRIBUTION WIDTH 13.5 % (12.0-15.0); WHITE BLOOD COUNT 11.2 x10^3/uL (4.8-10.8)
== END 2019-07-12 07:53 | disposition home or self-care (01) ==
LOC: LAB 07:52
PROVIDERS: ATTEND Obstetrics & Gynecology
DX: O36.0990 Maternal care for other rhesus isoimmunization, unspecified trimester, not applicable or unspecified (principal); Z3A.00 Weeks of gestation of pregnancy not specified
CPT/HCPCS: 36415; 82950; 85027; 86850

== ENCOUNTER 2019-07-13 07:00 | Outpatient (CLI) | payer OTHER | END 2019-07-13 23:59 | disposition home or self-care (01) | LOC: LAB.R 07:00 | PROVIDERS: ATTEND Obstetrics & Gynecology | DX: Z34.00 Encounter for supervision of normal first pregnancy, unspecified trimester (principal); R10.2 Pelvic and perineal pain | CPT/HCPCS: 82731 ==

== ENCOUNTER 2019-07-19 07:33 | Outpatient (CLI) | payer OTHER | END 2019-07-19 07:34 | disposition home or self-care (01) | LOC: LAB 07:33 | PROVIDERS: ATTEND Obstetrics & Gynecology | DX: O99.810 Abnormal glucose complicating pregnancy (principal); Z3A.00 Weeks of gestation of pregnancy not specified | CPT/HCPCS: 36415; 82951; 82952 ==

== ENCOUNTER 2019-09-13 08:00 | Outpatient (CLI) | payer OTHER ==
[2019-09-13 21:05] LABS: TRICHOMONAS VAGINALIS DNA NEGATIVE (NEGATIVE)
== END 2019-09-13 23:59 | disposition home or self-care (01) ==
LOC: LAB.R 08:00
PROVIDERS: ATTEND Advanced Practice Midwife
DX: Z34.80 Encounter for supervision of other normal pregnancy, unspecified trimester (principal)
CPT/HCPCS: 87491; 87591; 87661; 87797

== ENCOUNTER 2019-09-29 10:50 | Outpatient (CLI) | payer OTHER ==
[2019-09-29 13:39] LABS: BILIRUBIN,URINE NEGATIVE (NEGATIVE); GLUCOSE, URINE (UA) NEGATIVE (NEGATIVE); KETONES,URINE (UA) NEGATIVE (NEGATIVE); LEUKOCYTE ESTERASE, URINE NEGATIVE (NEGATIVE); NITRITE,URINE NEGATIVE (NEGATIVE); OCCULT BLOOD,URINE NEGATIVE (NEGATIVE); PH,URINE 6.5 PH (5.0-7.5); PROTEIN,URINE NEGATIVE (NEGATIVE); UROBILINOGEN,URINE 0.2 (NORMAL) E.U./dL (NORMAL)
[2019-09-29 13:42] LABS: CLARITY,URINE CLEAR (CLEAR)
[2019-09-29 13:59] LABS: CREATININE 0.6 mg/dL (0.4-1.0)
[2019-09-29 14:15] LABS: CREATININE,URINE 48.8 mg/dL
[2019-09-29 14:16] LABS: TOTAL PROTEIN,URINE TIMED < 6 mg/dL
== END 2019-09-29 23:59 | disposition home or self-care (01) ==
LOC: LAB.WCP 10:50
PROVIDERS: ATTEND Advanced Practice Midwife
DX: Z34.80 Encounter for supervision of other normal pregnancy, unspecified trimester (principal)
CPT/HCPCS: 36415; 81001; 81003; 82565; 82570; 83615; 84156; 84450; 84460; 87086

== ENCOUNTER 2019-10-07 06:28 | Inpatient (IN) | payer OTHER ==
[2019-10-07] MEDS ORDERED: SODIUM CHLORIDE FLUSH 0.9% 10 ML SYRINGE IVP PRN (08:10)
[2019-10-07] MEDS ORDERED: OXYTOCIN/SODIUM CHLORIDE 500 ML IV PRN (08:10)
[2019-10-07] MEDS ORDERED: CARBOPROST TROMETHAMINE 250 MCG/ML AMP IM PRN (08:10)
[2019-10-07] MEDS ORDERED: METHYLERGONOVINE 0.2 MG/ML VIAL IM PRN (08:10)
[2019-10-07] MEDS ORDERED: miSOPROStoL 200 MCG TABLET PR PRN ×2 (08:10)
[2019-10-07] MEDS ORDERED: OXYTOCIN/SODIUM CHLORIDE 500 ML IV SCH (08:15)
--- NOTE | 2019-10-07 08:25 | HISTORY & PHYSICAL EXAMINATION ---
Admit History - Visit Reason Visit Reason: Other (Induction of labor) - : 2 Parity: 1 Premature: 0 Ectopic: 0 : 0 Smoking Status: Never smoker - Mother's Labs Mother's Blood Type: positive: O Mother's RH: positive: Negative GBS: positive: Group B Step Negative Rubella Status: positive: Equivocal - Other Maternal History Other Maternal History: 40.4wks gestation Reports leaking fluids Ctx- reports moderate to strong contractions q4-6mins FHTs - 135 baseline, moderate variability, accels, no decels FM+ VB-(bloody show noted) Care- [facility]- adequate complications * Rh negative * Rubella equivocal * Anxiety/PTSD with vaginal exams- severe * History of PreEclampsia Dating Criteria- Initial US at 17.1wks gestation which was c/w LMP OB Hx * G1: Term 08/10/2018. Male (Joey). 6#3oz. Episiotomy. PreEclampsia. * G2: Current Allergies: * No Known Allergies Medications OMEPRAZOLE 20 MG ORAL CAPSULE DELAYED RELEASE (OMEPRAZOLE) Take one capsule by mouth daily.; Route: ORAL IRON 325 (65 FE) MG ORAL TABLET (FERROUS SULFATE) Take one tablet by mouth daily; Route: ORAL PROAIR HFA 108 (90 BASE) MCG/ACT INHALATION AEROSOL SOLUTION (ALBUTEROL SULFATE) 2 puffs orally up to every 4 hrs as needed for wheezing; Route: INHALATION ASPIR-LOW 81 MG ORAL TABLET DELAYED RELEASE (ASPIRIN) Sig 1 tab PO daily; Route: ORAL PRAZOSIN HCL 1 MG ORAL CAPSULE (PRAZOSIN HCL) Take one capsule by mouth daily; Route: ORAL PROVENTIL HFA 108 (90 BASE) MCG/ACT INHALATION AEROSOL SOLUTION (ALBUTEROL SULFATE) 2 puffs po q 6 hrs PRN shortness of breath; Route: INHALATION CVS TABLET ( VIT-FE FUMARATE-FA TABS) TAKE ONE TABLET BY MOUTH DAILY; Route: ORAL Medical History ASCUS (+) HPV- PAP indicated anxiety ADHD PTSD Surgical History R inguinal hernia 1991 Sinus surgery Tonsillectomy [place] Family History- non contributory Social History- non contributory Labs * O negative (Rhogam 07/13/2019) * Rubella- equivocal * Genetic- Quad negative * GBS- negative * Glucola- 1hr 140. 3hr (91, 147, 107, 104) WNL Immunizations * TDAP 07/13/2019 Exam: SVE 2/80/-2/soft/mid Vertex by digital exam EFW by maco's 7# Contractions moderate and every 4-6mins FHTs Cat I Assessment *34yo who presents at 40.4wks gestation to labor and delivery for ind uction of labor Plan *Admit to Labor and Delivery *Induction with pitocin administration per protocol *Monitoring- Continuous *May eat, drink, and ambulate to pt preference *May have epidural, fentanyl, whirlpool tub, and any non-pharmacological comfort measures PRN *Anticipate Meds/Allgy - Home Medications Home Medications: Ambulatory Orders Medication Instructions Recorded Confirmed No122/Iron/Folic Acid 1 tab PO DAILY 01/19/18 10/07/19 [ Multi Tablet] Albuterol Sulfate [Proair Hfa 10/07/19 Inhaler] Aspirin [Aspirin EC] 10/07/19 Omeprazole 10/07/19 - Allergies Allergies/Adverse Reactions: Allergies Allergy/AdvReac Type Severity Reaction Status Date / Time No Known Drug Allergies Allergy Verified 04/28/19 15:40 Review of Systems - Constitutional Constitutional: denies: Fatigue, Fever - Eyes Eyes: denies: Blurred vision, Spots in vision - Ears, Nose & Throat Ears, Nose & Throat: denies: Vertigo, Nasal discharge, Nasal congestion, Sore throat - Cardiovascular Cariovascular: denies: Irregular heart rate, Palpitations, Chest pain, Edema - Respiratory Respiratory: denies: Cough, Wheezing - Gastrointestinal Gastrointestinal: denies: Diarrhea, Nausea, Vomiting - Genitourinary Genitourinary: denies: Frequency, Urgency, Hematuria - Musculoskeletal Musculoskeletal: denies: Stiffness, Limited range of motion - Integumentary Integumentary: denies: Rash, Pruritis, Lesions - Neurological Neurological: denies: General weakness, Headache, Dizziness, Numbness - Psychiatric Psychiatric: reports: Anxiety (related to vag exam, pt autonomy encouraged). d enies: Depression - Hematologic/Lymphatic Hematologic/Lymphatic: denies: Anemia - All Other Systems All Other Systems: denies: Reviewed and negative Physical - Abdominal Exam : 4-6 Contraction Intensity: positive: Moderate Uterine Resting Tone: positive: Soft - Monitoring Heart Rate Baseline: 135 Strip Review: positive: Category I - Presentation Presentation: positive: Vertex - Vaginal Exam Membranes: positive: Membranes intact Dilation (in cm): 2 Effacement (%): 80 Station: positive: -2 Cervical Position: positive: Midposition
[2019-10-07 08:29] LABS: BASOPHILS # (AUTO) 0.1 10^3/uL (0.0-0.1); BASOPHILS % (AUTO) 0.4 %; EOSINOPHILS # (AUTO) 0.2 10^3/uL (0.0-0.7); EOSINOPHILS % (AUTO) 1.2 %; HGB - HEMOGLOBIN 12.5 g/dL (12.0-16.0); LYMPHOCYTES # (AUTO) 2.7 10^3/uL (1.5-3.5); LYMPHOCYTES % (AUTO) 18.6 %; MEAN CORPUSCULAR HEMOGLOBIN 29.8 pg (27.0-31.0); MEAN CORPUSCULAR HGB CONC 33.4 g/dL (32.0-36.0); MEAN PLATELET VOLUME 12.4 fL (7.9-10.8); MONOCYTES % (AUTO) 6.9 %; NEUTROPHILS # (AUTO) 10.2 10^3/uL (1.5-6.6); NEUTROPHILS % (AUTO) 69.9 %; PLT - PLATELET COUNT 146 10^3/uL (130-450); RED CELL DISTRIBUTION WIDTH 16.2 % (12.0-15.0); WHITE BLOOD COUNT 14.6 x10^3/uL (4.8-10.8)
[2019-10-07] MEDS ORDERED: fentaNYL 100 MCG/2 ML VIAL IVP PRN (08:30)
[2019-10-07] MEDS: LACTATED RINGERS 1,000 ML IV SCH ×2 (08:52→16:33)
[2019-10-07] MEDS ORDERED: SODIUM CHLORIDE FLUSH 0.9% 10 ML SYRINGE IVP SCH (09:00)
[2019-10-07] MEDS ORDERED: LIDOCAINE-MPF 1% 30 ML VIAL ONE (13:31)
[2019-10-07] MEDS ORDERED: ROPIVACAINE 0.2% 200 MG/100 ML BAG EP ONE (13:54)
[2019-10-07] MEDS ORDERED: METOCLOPRAMIDE 10 MG/2 ML VIAL IVP PRN (14:32)
[2019-10-07] MEDS ORDERED: NALOXONE 0.4 MG/ML VIAL IVP PRN (14:32)
[2019-10-07] MEDS ORDERED: diphenhydrAMINE INJ 50 MG/ML VIAL IVP PRN (14:32)
[2019-10-07] MEDS ORDERED: LACTATED RINGERS 500 ML IV ONE (14:32)
[2019-10-07] MEDS ORDERED: NALBUPHINE 10 MG/ML AMP IVP PRN (14:32)
[2019-10-07] MEDS ORDERED: ePHEDrine 50 MG/ML VIAL IVP PRN (14:32)
[2019-10-07] MEDS ORDERED: ROPIVACAINE 0.2% 200 MG/100 ML BAG EP PRN (14:32)
[2019-10-07] MEDS ORDERED: ONDANSETRON 4 MG/2 ML VIAL IVP PRN (14:32)
--- NOTE | 2019-10-07 14:32 | ANESTHESIA ---
Pre-Anesthesia VS, & Labs - Diagnosis labor - Procedure labor epidural Height 5 ft 3 in Weight (kg) 89.811 kg Body Mass Index 31.5 - Is Patient ?: Yes - Lab Results Current Lab Results: Laboratory Tests 10/07/19 07:10: WBC 14.6 H, RBC 4.20, Hgb 12.5, Hct 37.4, MCV 89.0, MCH 29.8, MCHC 33.4, RDW 16.2 H, Plt Count 146, MPV 12.4 H, Neut # (Auto) 10.2 H, Lymph # (Auto) 2.7, Freeborn # (Auto) 1.0, Eos # (Auto) 0.2, Baso # (Auto) 0.1, Absolute Nucleated RBC 0.00, Nucleated RBC % 0.0 Fish Bones: 10/07/19 07:10 Home Medications and Allergies Home Medications: Ambulatory Orders Albuterol Sulfate [Proair Hfa Inhaler] 10/07/19 Aspirin [Aspirin EC] 10/07/19 Omeprazole 10/07/19 Active Medications Carboprost Tromethamine (Hemabate) 250 mcg IM ONCE PRN PRN Reason: Post- Hemorrhage Stop: 10/07/19 15:00 Fentanyl (Fentanyl) 50 mcg IVP Q1H PRN; Protocol PRN Reason: PAIN Lactated Ringer's (Lr) 1,000 mls @ 100 mls/hr IV .Q10H ANDREW Last Admin: 10/07/19 08:52 Dose: 100 mls/hr Oxytocin/Sodium Chloride (Pitocin/Sodium Chloride) 500 mls @ 1 mls/hr IV TITR ANDREW; Protocol Last Titration: 10/07/19 10:25 Dose: 3 milliunit/min, 3 mls/hr Oxytocin/Sodium Chloride (Pitocin/Sodium Chloride) 500 mls @ 999 mls/hr IV PRN PRN; Protocol PRN Reason: POST- HEMORR PREVENTION Methylergonovine Maleate (Methergine Inj) 0.2 mg IM Q4HR PRN PRN Reason: Post- Hemorrhage Misoprostol (Cytotec) 600 mcg NV ONCE PRN PRN Reason: bleeding Stop: 10/07/19 15:00 Misoprostol (Cytotec) 800 mcg NV ONCE PRN PRN Reason: Post- Hemorrhage Stop: 10/07/19 15:00 Sodium Chloride (Normal Saline Flush 0.9%) 10 ml IVP 0100,0900,1700 ANDREW Sodium Chloride (Normal Saline Flush 0.9%) 10 ml IVP PRN PRN PRN Reason: NEEDED PER PROVIDER ORDERS No122/Iron/Folic Acid [ Multi Tablet] 1 tab PO DAILY 01/19/18 Albuterol Sulfate [Proair Hfa Inhaler] 10/07/19 Aspirin [Aspirin EC] 10/07/19 Omeprazole 10/07/19 Allergies/Adverse Reactions: Allergies Allergy/AdvReac Type Severity Reaction Status Date / Time No Known Drug Allergies Allergy Verified 04/28/19 15:40 Anes History & Medical History - Anesthetic History Anesthesia Complications: reports: No previous complications Family history of Anesthesia Complications: Denies Family history of Malignant Hyperthermia: Denies - Medical History Pulmonary: reports: Asthma Gastrointestinal: reports: GERD Smoking Status: Never smoker Other Past Medical History: obesity, BMI=35 - Surgical History General: Other Eyes Ears Nose Throat (EENT): Tonsil/Adenoidectomy - Obstetrical History : 2 Parity: 1 Exam General: Alert, Oriented x3, Cooperative Dental: WNL Mouth Opening: Greater than 4 Fingerbreadths Neck Mobility: Normal Mallampati classification: II Thyromental Distance: 4-6 cm Respiratory: Lungs clear Cardiovascular: Regular rate Plan Anesthesia Type: Epidural Consent for Procedure(s) Verified and Reviewed: Yes Code Status: Attempt Resuscitation ASA classification: 2-Mild systemic disease Is this case an emergency?: No
--- NOTE | 2019-10-07 16:38 | PROVIDER PROGRESS NOTE ---
Labor Progress Note - Uterine Monitoring Uterine Monitoring Mode: positive: External toco Contraction Frequency (min/apart): 2-3 Contraction Intensity: positive: Moderate to strong Uterine Resting Tone: positive: Soft - Monitoring Monitor Mode: positive: External ultrasound Heart Rate Baseline: 140 Heart Rate Variability: positive: Moderate (6-25 bmp) Accelerations: positive: Present, 15x15 Decelerations: positive: None Strip Review: positive: Category I - Vaginal Exam Dilation (in cm): 6 Effacement (%): 100 Station: -1 Cervical Position: Anterior - Labor Progress Note Labor Progress Note/Additional Text: S: Pt resting comfortably in bed with epidural in place. Nurse Ldr at bedside. O: See SVE, FHTs, and CTX as above BP 119/70; HR 91 Pitocin @ 7mL/hr A: Modest cervical progress Adequate uterine activity P: Continue with pitocin induction Epidural for comfort Ice chips only Anticipate
[2019-10-07] MEDS ORDERED: LIDOCAINE-MPF 1% 30 ML VIAL ID PRN (18:40)
[2019-10-07] MEDS ORDERED: ONDANSETRON ODT 4 MG TABLET TL PRN (19:20)
[2019-10-07] MEDS: IBUPROFEN 600 MG TABLET PO SCH (19:35)
[2019-10-07] MEDS: ACETAMINOPHEN 500 MG TABLET PO SCH (19:36)
[2019-10-07] MEDS ORDERED: LACTATED RINGERS 1,000 ML IV SCH (20:00)
[2019-10-07] MEDS ORDERED: MEASLES,MUMPS & RUBELLA VACC 0.5 ML VIAL SUBQ ONE (22:37)
--- NOTE | 2019-10-07 22:40 | DELIVERY NOTE ---
Delivery Note - Labor Labor: positive: Induced by oxytocin - Infant Delivery Method Delivery Method: positive: Spontaneous vaginal delivery - Presentation Presentation: positive: Vertex, Compound - Nuchal Cord Nuchal Cord: positive: None - Anesthetic Anesthetic Type: - Amniotic Fluid Description Amniotic Fluid Description: positive: Clear - Episiotomy Type Episiotomy Type: positive: None - Laceration Laceration: positive: 2nd degree - Suture Suture Type: positive: Vicryl Suture Size: positive: 3-0 - Delivery Outcome Delivery Outcome: positive: Livebirth - Terril Terril: positive: Placed in direct skin contact with mother, Stimulated, Warmed, [place] used Terril sex: positive: Female - Cord Cord: positive: 3 vessels - Placenta Placenta: positive: Intact, Expressed - Estimated Blood Loss Estimated Blood Loss (in cc): 150 - Post Delivery Events Post Delivery Events: positive: No post delivery events - Delivery Comments (Free Text/Narrative) Delivery Comments (Free Text/Narrative): STAGE I: Patient is a 34-year-old G2, I3Eirlipex at 40 weeks and 4 days for induction of labor. Initial SVE was 2/80/-2. She was started on Pitocin for induction, Laci max dose of 7 milliunits/min. She was GBS negative and antibiotics were not indicated. She received an epidural for analgesia. At 1805 she underwent artificial rupture of membranes, notable for passage of scant amount of clear fluid. She was noted to be complete at 1832. Category 1 tracing throughout stage I labor. STAGE II: Patient pushed well for 3 minutes.Delivered a viable female infant at 1835 from MALAIKA/compound presentation with right hand present with face. The left shoulder delivered anterior without difficulty. was delivered to maternal chest. Delayed cord clamping was observed; cord was clamped x2 and cut once pulsations had ceased. Nuchal cord was not present. Apgars were 9 and 9 and weight was 3240 g. STAGE III: Placenta delivered at 1843 with manual expression and gentle downward traction on the cord. It was examined and found to be intact. The perineum was examined and a small midline second-degree laceration was noted. She received a 4 cc of 1% lidocaine For additional analgesia. Laceration was repaired with 3-0 Vicryl in the usual sterile fashion in layers. Good hemostasis was noted. Total EBL was 150 cc.Procedure was well-tolerated and without complication.
[2019-10-07] MEDS ORDERED: WITCH HAZEL/GLYCERIN 1 PAD TOP PRN (22:56)
[2019-10-08] MEDS: IBUPROFEN 600 MG TABLET PO SCH ×3 (01:24→14:37)
[2019-10-08] MEDS: ACETAMINOPHEN 500 MG TABLET PO SCH ×2 (03:11→11:22)
--- NOTE | 2019-10-08 12:21 | Discharge Plan ---
Discharge Plan Problem Reviewed?: Yes Disposition: Home, Self Care Condition: Good Diet: Regular Activity Restrictions: Additional Comments (Nothing in the vagina for 6 weeks: No intercourse, tampons, douching Call for: -Fever greater than 100.5 - Pain that does not improve with pain medication -Heavy bleeding in which you are soaking a pad an hour for 2 hours in a row Ibuprofen 600 mg by mouth every 6 hours as needed for pain Acetaminophen 500-1000 mg by mouth every 8 hours as needed for pain Docusate 100-200 mg by mouth twice a day as needed for constipation Oxycodone 5 mg by mouth every 4 hours as needed for pain; use only after other meds have failed) Shower Restrictions: No Driving Restrictions: Yes (No driving on narcotics) No Smoking: If you smoke, Please STOP! Call for help. Follow-up with: Nicole Briones ARNP [Provider Admit Priv/Credential] -
--- NOTE | 2019-10-08 12:23 | PROVIDER PROGRESS NOTE ---
Subjective - Prog Note Date Prog Note Date: 10/08/19 Prog Note Time: 12:22 - Subjective Subjective: Patient is up and ambulating, tolerating po, and voiding. Pain is well managed with pain medications. Feels she could use stronger pain medications when a bdominal pain and laceration pain intensifies. Objective - Vital Signs/Intake & Output Vital Signs: Vital Signs x48h Temp Pulse Resp BP Pulse Ox 10/08/19 09:45 98.4 F 71 18 110/78 98 Intake & Output: Intake & Output 10/05/19 10/06/19 10/07/19 10/08/19 23:59 23:59 23:59 23:59 Intake Total 2176.834 Output Total 1075 Balance 1101.834 - Objective General Appearance: positive: No acute distress Neck: positive: Nml inspection Respiratory: positive: No respiratory distress Cardiovascular: positive: Other (RR) Abdomen: positive: Non-tender, Other (S&NT/ND; FF below umbi) Skin: positive: Color nml Extremities: positive: Non-tender, No pedal edema Neurologic/Psychiatric: positive: Oriented x3 - Lab Results Fish Bones: 10/07/19 07:10 Assessment/Plan - Problem List (1) Vaginal delivery Impression: PPD#1: Meeting goals for discharge -Needs MMR prior to discharge -Infant blood type is O-; RhoGam not indicated -Routine discharge instructions were provided -Follow-up in 6 weeks or earlier as needed.
--- NOTE | 2019-10-08 12:25 | DISCHARGE SUMMARY ---
"Discharge Summary Admit Date: 10/07/19 Discharge Date: 10/08/19 Discharging Provider: Dominic Code Status: Attempt Resuscitation Condition at Discharge: Good Discharge Disposition: 01 Home, Self Care Discharge Facility Name: [facility] - DIAGNOSES Admission Diagnoses: IUP at 40+4 wga Discharge Diagnoses with Status of Each Condition: Same and delivery of term gestation - HPI History of Present Illness: Patient is a 34 yo at 40.4wks gestation withpregnancy complicated by Rh negative status, equivocal immune status, Anxiety/PTSD with vaginal exams- severe, and history of PreEclampsia admitted for induction of labor. - CONSULTS | PROCEDURES Procedures: Spontaneous vaginal delivery Epidural placement - HOSPITAL COURSE Hospital Course: Patient is a 34-year-old G2, [id number] at 40 weeks and 4 days for induction of labor. Initial SVE was 2/80/-2. She was started on Pitocin for induction, reaching a max dose of 7 milliunits/min. She was GBS negative and antibiotics were not indicated. She received an epidural for analgesia. At 1805 she underwent artificial rupture of membranes, notable for passage of scant amount of clear fluid. She was noted to be complete at 1832. Category 1 tracing throughout stage I labor. Patient pushed well for 3 minutes.Delivered a viable female at 1835 from [place]AIKA/compound presentation with right hand present with face. The left shoulder delivered anterior without difficulty. Infant was delivered to maternal chest. Delayed cord clamping was observed; cord was clamped x2 and cut once pulsations had ceased. Nuchal cord was not present. Apgars were 9 and 9 and weight was 3240 g. Placenta delivered at 1843 with manual expression and gentle downward traction on the cord. It was examined and found to be intact. The perineum was examined and a small midline second-degree laceration was noted. She received a 4 cc of 1% lidocaine For additional analgesia. Laceration was repaired with 3-0 Vicryl in the usual sterile fashion in layers. Good hemostasis was noted. Total EBL was 150 cc.Procedure was well-tolerated and without complication. course was uncomplicated. By day #1, patient was meeting goals for discharge. Patient is Rh- but infant blood type was O- and RhoGam was not indicated. Patient is rubella equivocal; MMR ordered prior to discharge. - ALLERGIES Allergies/Adverse Reactions: Allergies Allergy/AdvReac Type Severity Reaction Status Date / Time No Known Drug Allergies Allergy Verified 04/28/19 15:40 - MEDICATIONS Home Medications: Ambulatory Orders Medication Instructions Recorded Confirmed No122/Iron/Folic Acid 1 tab PO DAILY 01/19/18 10/07/19 [ Multi Tablet] Albuterol Sulfate [Proair Hfa 10/07/19 Inhaler] Aspirin [Aspirin EC] 10/07/19 Omeprazole 10/07/19 - LABS Result Diagrams: 10/07/19 07:10 - FOLLOW UP Follow Up: 6 weeks - TIME SPENT Time Spent in Discharge (Minutes): 30"
[2019-10-08 19:15] VITALS: BP 135/80
--- NOTE | 2019-10-08 21:45 | Labor Flowsheet ---
Labor Flowsheet Datetime Report Generated by CPN: 10/08/2019 21:45 Datetime: 10/07/2019 23:07 VITAL SIGNS NBP Sys/Bev/Mean (mmHg): 126 : 79 : 88 Pulse: 81 Datetime: 10/07/2019 19:45 SpO2 (%): 100 Datetime: 10/07/2019 18:36 Stage of : Recovery Datetime: 10/07/2019 18:35 LaborFlag: Labor Datetime: 10/07/2019 18:34 UTERINE ACTIVITY Monitor Mode: External Frequency (min): 2-2.5 Quality: Strong Duration (sec): 60-70 Pattern: Normal: <= 5 Contractions in 10 Minutes Resting Tone (Palpate): Relaxed Contraction Comments: pushing Datetime: 10/07/2019 18:30 ASSESSMENT A Monitor Mode: External US FHR Baseline Rate : 150 Variability: Minimal - Undetectable to <=5 bpm Decelerations: Variable Category: Category II Datetime: 10/07/2019 18:25 VAGINAL EXAM Dilatation (cm): 10.0 Effacement (%): 100 Exam by: McSorley Datetime: 10/07/2019 18:14 Temperature (C): 37.0 Accelerations: 15X15 Datetime: 10/07/2019 18:10 PATIENT CARE Patient Position/Activity: Left Lateral Patient Care Comments: peanut ball Datetime: 10/07/2019 18:05 Station: 0 Membrane Status: Ruptured Membranes Rupture Method: Artificial Amniotic Fluid Color: Clear Amniotic Fluid Amount: Small Datetime: 10/07/2019 18:00 COMMUNICATION [facility] Communication Comments: MD at bedside Datetime: 10/07/2019 17:00 Comments: minimal to moderate, subtle early decelerations PAIN Pain Scale: 0 Datetime: 10/07/2019 16:11 I/O Interventions: Blank Cath Inserted Datetime: 10/07/2019 16:00 Anesthesia Level Check: T7 Datetime: 10/07/2019 15:46 MEDICATIONS Pitocin (milliunits): Increased to @ 7 Datetime: 10/07/2019 14:06 Epidural Procedure: Test Dose Datetime: 10/07/2019 14:01 Anesthesia Comments: local Datetime: 10/07/2019 13:56 PROCEDURE TIME OUT Procedure Verify: Correct Patient Identity; Correct Side and Site are Marked; Accurate Procedure Co nsent Form; Agreement on Procedure to be Done; Correct Patient Position; Relevant Images and Results are Properly Labeled and Displayed; Addressed Need to Administer Antibiotics or Fluids for Irrigation ; Safety Precautions Based on Patient History or Medication Use ANESTHESIA Anesthesia Plans: Epidural Epidural Positioning: Sitting Datetime: 10/07/2019 13:31 Pain Coping: Requesting Pain Medication or Epidural Datetime: 10/07/2019 11:12 Monitor Interventions for UA: [place] Adjusted Datetime: 10/07/2019 11:00 Pain Presence: Intermittent Pain Type: Cramping Pain Location: Abdomen Pain Relief Measures: Comfort Measures Comfort Measures: Oil Well Service Operator Support
== END 2019-10-08 20:55 | disposition home or self-care (01) | DRG 806 ==
LOC: WFO 06:28 → FBP 06:31 → WFO 08:09 → FBP 08:10 → OBS 10-08 01:24
PROVIDERS: ADMIT Advanced Practice Midwife; ATTEND Obstetrics & Gynecology
PROC: 10E0XZZ Delivery of Products of Conception, External Approach (ICD-10-PCS; principal; 2019-10-07)
PROC: 0KQM0ZZ Repair Perineum Muscle, Open Approach (ICD-10-PCS; 2019-10-07)
PROC: 3E033VJ Introduction of Other Hormone into Peripheral Vein, Percutaneous Approach (ICD-10-PCS; 2019-10-07)
PROC: 10907ZC Drainage of Amniotic Fluid, Therapeutic from Products of Conception, Via Natural or Artificial Opening (ICD-10-PCS; 2019-10-07)
DX: O48.0 Post-term pregnancy (principal); O98.52 Other viral diseases complicating childbirth; Z37.0 Single live birth; R87.820 Cervical low risk human papillomavirus (HPV) DNA test positive; O32.6XX0 Maternal care for compound presentation, not applicable or unspecified; O70.1 Second degree perineal laceration during delivery; O99.344 Other mental disorders complicating childbirth; F41.9 Anxiety disorder, unspecified; F43.10 Post-traumatic stress disorder, unspecified; F90.9 Attention-deficit hyperactivity disorder, unspecified type; O99.89 Other specified diseases and conditions complicating pregnancy, childbirth and the puerperium; R87.610 Atypical squamous cells of undetermined significance on cytologic smear of cervix (ASC-US); O99.52 Diseases of the respiratory system complicating childbirth; J45.909 Unspecified asthma, uncomplicated; O99.62 Diseases of the digestive system complicating childbirth; K21.9 Gastro-esophageal reflux disease without esophagitis; Z3A.40 40 weeks gestation of pregnancy; Z79.82 Long term (current) use of aspirin; Z79.51 Long term (current) use of inhaled steroids; Z87.59 Personal history of other complications of pregnancy, childbirth and the puerperium
CPT/HCPCS: 85025; A9270; J7120

== ENCOUNTER 2019-10-27 08:00 | Outpatient (CLI) | payer OTHER ==
[2019-10-27 23:03] LABS: CANDIDA GROUP DNA UNRESOLVED (NEGATIVE); CANDIDA KRUSEI DNA UNRESOLVED (NEGATIVE)
[2019-10-27 23:04] LABS: TRICHOMONAS VAGINALIS DNA UNRESOLVED (NEGATIVE)
== END 2019-10-27 23:59 | disposition home or self-care (01) ==
LOC: LAB.R 08:00
PROVIDERS: ATTEND Advanced Practice Midwife
DX: Z39.1 Encounter for care and examination of lactating mother (principal)
CPT/HCPCS: 87661; 87801

== ENCOUNTER 2019-10-28 07:00 | Outpatient (CLI) | payer OTHER ==
[2019-10-28 22:32] LABS: CANDIDA GROUP DNA NEGATIVE (NEGATIVE); CANDIDA KRUSEI DNA NEGATIVE (NEGATIVE); TRICHOMONAS VAGINALIS DNA NEGATIVE (NEGATIVE)
== END 2019-10-28 23:59 | disposition home or self-care (01) ==
LOC: LAB.R 07:00
PROVIDERS: ATTEND Advanced Practice Midwife
DX: Z39.1 Encounter for care and examination of lactating mother (principal)
CPT/HCPCS: 87661; 87801

== ENCOUNTER 2019-11-11 08:00 | Outpatient (CLI) | payer OTHER ==
[2019-11-12 19:20] LABS: CANDIDA GROUP DNA NEGATIVE (NEGATIVE); CANDIDA KRUSEI DNA NEGATIVE (NEGATIVE); TRICHOMONAS VAGINALIS DNA NEGATIVE (NEGATIVE)
== END 2019-11-11 23:59 | disposition home or self-care (01) ==
LOC: LAB.R 08:00
PROVIDERS: ATTEND Advanced Practice Midwife
DX: Z39.1 Encounter for care and examination of lactating mother (principal)
CPT/HCPCS: 36415; 84443; 85027; 87661; 87801

== ENCOUNTER 2019-11-11 16:00 | Outpatient (CLI) | payer OTHER ==
[2019-11-11 16:18] LABS: HGB - HEMOGLOBIN 13.2 g/dL (12.0-16.0); MEAN CORPUSCULAR HEMOGLOBIN 28.5 pg (27.0-31.0); MEAN CORPUSCULAR VOLUME 89.2 fL (81.0-99.0); MEAN PLATELET VOLUME 10.8 fL (7.9-10.8); RED BLOOD COUNT 4.63 10^6/uL (4.20-5.40); RED CELL DISTRIBUTION WIDTH 14.4 % (12.0-15.0); WHITE BLOOD COUNT 9.1 x10^3/uL (4.8-10.8)
== END 2019-11-11 16:01 | disposition home or self-care (01) ==
LOC: LAB 16:00
PROVIDERS: ATTEND Advanced Practice Midwife
DX: Z39.1 Encounter for care and examination of lactating mother (principal)
CPT/HCPCS: 36415; 84443; 85027